=== PATIENT | male | born 1995 | race Caucasian/White ===

== ENCOUNTER 2016-03-18 06:30 | Emergency (ER) | payer MEDICAID ==
[~2016-03-18] VITALS: Ht 175.3 cm; Wt 68.0 kg
[~2016-03-18 06:30] MED LIST: ALBU18HF2 INH; PRED20TA PO
[2016-03-18] MEDS ORDERED: HYDROMORPHONE INJ 2 MG/ML DISP.SYRIN IV ONE (07:00)
[2016-03-18] MEDS ORDERED: ONDANSETRON HCL/PF 4 MG/2 ML VIAL IVP ONE (07:00)
[2016-03-18] MEDS ORDERED: IV NS 0.9% 500 ML BAG IV ONE (07:00)
[2016-03-18] MEDS ORDERED: HYDROMORPHONE 1 MG/1 ML DISP.SYRIN ONE (07:03)
[2016-03-18] MEDS ORDERED: IV SET PRIMARY PUMP SET 1 EA INFUS.SET MC ONE (07:03)
[2016-03-18] MEDS ORDERED: ONDANSETRON HCL/PF 4 MG/2 ML VIAL ONE (07:03)
[2016-03-18 07:20] LABS: CALCIUM, SERUM 9.1 mg/dL (8.5-10.1); CREATININE 0.9 mg/dL (0.6-1.3); POTASSIUM 3.8 mmol/L (3.5-5.1)
[2016-03-18 07:25] LABS: BASOPHILS # (AUTO) 0.1 /CMM (0.0-0.2); BASOPHILS % (AUTO) 0.8 % (0.0-2.0); DIFF TOTAL % 100 %; EOSINOPHILS # (AUTO) 0.8 /CMM (0.0-0.7); EOSINOPHILS % (AUTO) 9.6 % (0.0-6.0); HEMATOCRIT 47 % (39-51); HEMOGLOBIN 15.9 g/dL (13.5-17.5); LYMPHOCYTES # (AUTO) 2.3 /CMM (0.8-4.8); MEAN CORPUSCULAR HEMOGLOBIN 30 PG (26.0-33.0); MEAN CORPUSCULAR HGB CONC 34 g/dl (31.0-36.0); MEAN CORPUSCULAR VOLUME 88 fL (80-96); MONOCYTES # (AUTO) 0.7 /CMM (0.1-1.30); MONOCYTES % (AUTO) 8.6 % (2.0-12.0); NEUTROPHILS # (AUTO) 4.3 /CMM (1.8-8.9); PLATELET COUNT (AUTO) 299 /CMM (150-450); WHITE BLOOD COUNT (AUTO) 8.1 K/uL (4.3-11.0)
[2016-03-18 07:27] LABS: BILIRUBIN,DIRECT 0.1 mg/dL (0.0-0.2); BILIRUBIN,TOTAL 0.4 mg/dL (0.2-1.0); INDIRECT BILIRUBIN 0.3 mg/dL (0.0-1.1); TOTAL PROTEIN, SERUM 7.7 g/dL (6.4-8.2)
[2016-03-18 07:31] LABS: ADD UA MICROSCOPIC NO; KETONES,URINE NEGATIVE (NEGATIVE); LEUKOCYTE ESTERASE ,URINE NEGATIVE (NEGATIVE); PH,URINE 6.5 (5.0-8.0)
[2016-03-18] MEDS ORDERED: ALBUTEROL FS 2.5 MG/3 ML VIAL.NEB ONE (07:50)
[2016-03-18] MEDS ORDERED: IPRATROPIUM NEB FS 0.5 MG/2.5 ML AMPUL.NEB ONE (07:50)
[2016-03-18 08:50] VITALS: BP 143/87
== END 2016-03-18 08:51 | disposition home or self-care (01) ==
LOC: ER 06:30
DX: K81.9 Cholecystitis, unspecified (principal); J45.909 Unspecified asthma, uncomplicated; Z88.5 Allergy status to narcotic agent; Z88.8 Allergy status to other drugs, medicaments and biological substances
CPT/HCPCS: 36415; 76700; 80048; 80076; 81001; 83690; 85025; 96374; 96375; 99285; A4606; J1170; J2405; Z7610; 81000-TC

== ENCOUNTER 2016-04-30 03:13 | Emergency (ER) | payer OTHER ==
[~2016-04-30] VITALS: Ht 172.7 cm; Wt 68.9 kg
[2016-04-30] MEDS ORDERED: ONDANSETRON HCL/PF 4 MG/2 ML VIAL ONE (03:49)
[2016-04-30 03:57] LABS: BASOPHILS # (AUTO) 0.1 /CMM (0.0-0.2); BASOPHILS % (AUTO) 0.7 % (0.0-2.0); DIFF TOTAL % 100 %; HEMATOCRIT 45 % (39-51); HEMOGLOBIN 15.4 g/dL (13.5-17.5); LYMPHOCYTES # (AUTO) 2.8 /CMM (0.8-4.8); LYMPHOCYTES % (AUTO) 29.3 % (20.0-44.0); MEAN CORPUSCULAR HEMOGLOBIN 30 PG (26.0-33.0); MEAN CORPUSCULAR HGB CONC 34 g/dl (31.0-36.0); MEAN CORPUSCULAR VOLUME 87 fL (80-96); MONOCYTES # (AUTO) 0.8 /CMM (0.1-1.30); MONOCYTES % (AUTO) 8.6 % (2.0-12.0); NEUTROPHILS % (AUTO) 51.4 % (43.0-81.0); PLATELET COUNT (AUTO) 293 /CMM (150-450); WHITE BLOOD COUNT (AUTO) 9.7 K/uL (4.3-11.0)
[2016-04-30] MEDS ORDERED: methylPREDNISolone SOD SUCC 125 MG/2ML VIAL ONE (03:57)
[2016-04-30 03:58] LABS: ADD UA MICROSCOPIC NO; KETONES,URINE NEGATIVE (NEGATIVE); LEUKOCYTE ESTERASE ,URINE NEGATIVE (NEGATIVE); PH,URINE 6.5 (5.0-8.0)
[2016-04-30] MEDS ORDERED: FAMOTIDINE/PF INJ 20 MG/2 ML VIAL IV ONE ×2 (03:58→04:00)
[2016-04-30] MEDS ORDERED: MORPHINE SULFATE INJ 2 MG/ML DISP.SYRIN IV ONE (04:00)
[2016-04-30] MEDS ORDERED: ONDANSETRON HCL/PF 4 MG/2 ML VIAL IVP ONE (04:00)
[2016-04-30] MEDS ORDERED: methylPREDNISolone SOD SUCC 125 MG/2ML VIAL IV ONE (04:00)
[2016-04-30 04:14] LABS: BILIRUBIN,TOTAL 0.4 mg/dL (0.2-1.0); CALCIUM, SERUM 8.3 mg/dL (8.5-10.1); POTASSIUM 3.8 mmol/L (3.5-5.1); TOTAL PROTEIN, SERUM 7.5 g/dL (6.4-8.2)
[2016-04-30 04:45] LABS: INDIRECT BILIRUBIN 0.4 mg/dL (0.0-1.1)
[2016-04-30 05:16] VITALS: BP 124/67
== END 2016-04-30 05:17 | disposition home or self-care (01) ==
LOC: ER 03:13
DX: K80.20 Calculus of gallbladder without cholecystitis without obstruction (principal); J45.909 Unspecified asthma, uncomplicated; Z88.6 Allergy status to analgesic agent; Z88.8 Allergy status to other drugs, medicaments and biological substances
CPT/HCPCS: 36415; 76705; 80048; 80076; 81001; 83690; 85025; 96374; 96375; 99285; A4606; J2405; J2930; J3490; Z7610; 81000-TC

== ENCOUNTER 2016-06-10 18:59 | Emergency (ER) | payer MEDICAID, OTHER ==
[~2016-06-10] VITALS: Ht 172.7 cm; Wt 68.0 kg
[2016-06-10 19:17] VITALS: BP 126/81
[2016-06-10] MEDS ORDERED: ALBUTEROL FS 2.5 MG/3 ML VIAL.NEB ONE (19:38)
[2016-06-10] MEDS ORDERED: IPRATROPIUM NEB FS 0.5 MG/2.5 ML AMPUL.NEB ONE (19:38)
[2016-06-10] MEDS ORDERED: ALBUTEROL FS 2.5 MG/3 ML VIAL.NEB NEB ONE (20:00)
[2016-06-10] MEDS ORDERED: predniSONE 20 MG TABLET PO ONE (20:00)
[2016-06-10] MEDS ORDERED: IPRATROPIUM NEB FS 0.5 MG/2.5 ML AMPUL.NEB NEB ONE (20:00)
[2016-06-10] MEDS ORDERED: predniSONE 20 MG TABLET ONE (20:04)
== END 2016-06-10 20:21 | disposition home or self-care (01) ==
LOC: ER 19:01
DX: J45.901 Unspecified asthma with (acute) exacerbation (principal); K21.0 Gastro-esophageal reflux disease with esophagitis; K80.20 Calculus of gallbladder without cholecystitis without obstruction; Z88.6 Allergy status to analgesic agent; Z88.8 Allergy status to other drugs, medicaments and biological substances
CPT/HCPCS: 94640 ×2; 99284; A4606; J7512; Z7610

== ENCOUNTER 2016-07-22 23:34 | Emergency (ER) | payer MEDICAID, OTHER ==
[~2016-07-22] VITALS: Ht 172.7 cm; Wt 68.0 kg
[2016-07-22 23:49] VITALS: BP 104/77
[2016-07-23] MEDS ORDERED: MAG HYDROX/AL HYDROX/SIMETH 30 ML UDC ONE (00:23)
[2016-07-23] MEDS ORDERED: MAG HYDROX/AL HYDROX/SIMETH 30 ML UDC PO ONE (00:30)
== END 2016-07-23 00:30 | disposition home or self-care (01) ==
LOC: ER 23:34
DX: K21.9 Gastro-esophageal reflux disease without esophagitis (principal); J45.909 Unspecified asthma, uncomplicated; Z87.442 Personal history of urinary calculi; Z88.6 Allergy status to analgesic agent; Z88.8 Allergy status to other drugs, medicaments and biological substances
CPT/HCPCS: 99283; A4606; Z7610

== ENCOUNTER 2017-02-09 | Emergency (ER) | payer OTHER ==
[~2017-02-09] VITALS: Ht 172.7 cm; Wt 63.5 kg
[2017-02-09 00:04] VITALS: BP 123/77
== END 2017-02-09 00:22 | disposition home or self-care (01) ==
LOC: ER 00:05
DX: Z76.0 Encounter for issue of repeat prescription (principal); J06.9 Acute upper respiratory infection, unspecified; J45.909 Unspecified asthma, uncomplicated; K21.9 Gastro-esophageal reflux disease without esophagitis; Z88.6 Allergy status to analgesic agent; Z88.8 Allergy status to other drugs, medicaments and biological substances; Z79.899 Other long term (current) drug therapy
CPT/HCPCS: 99283; A4606; Z7610

== ENCOUNTER 2017-03-31 04:42 | Emergency (ER) | payer SELFPAY ==
[~2017-03-31] VITALS: Ht 172.7 cm; Wt 65.8 kg
[2017-03-31 04:57] VITALS: BP 112/70
== END 2017-03-31 05:38 | disposition home or self-care (01) ==
LOC: ER 04:42
DX: K80.50 Calculus of bile duct without cholangitis or cholecystitis without obstruction (principal); J45.909 Unspecified asthma, uncomplicated; K21.9 Gastro-esophageal reflux disease without esophagitis; Z88.6 Allergy status to analgesic agent; Z88.8 Allergy status to other drugs, medicaments and biological substances
CPT/HCPCS: A4606; Z7610

== ENCOUNTER 2017-10-25 04:31 | Emergency (ER) | payer MEDICAID ==
[~2017-10-25] VITALS: Ht 172.7 cm; Wt 63.5 kg
[2017-10-25 04:42] VITALS: BP 114/67
== END 2017-10-25 05:17 | disposition home or self-care (01) ==
LOC: ER 04:33
DX: I88.9 Nonspecific lymphadenitis, unspecified (principal); J45.909 Unspecified asthma, uncomplicated; Z90.49 Acquired absence of other specified parts of digestive tract; Z88.6 Allergy status to analgesic agent; Z88.8 Allergy status to other drugs, medicaments and biological substances
CPT/HCPCS: A4606; Z7610

== ENCOUNTER 2018-06-14 13:42 | Emergency (ER) | payer MEDICAID ==
[~2018-06-14] VITALS: Ht 172.7 cm; Wt 67.6 kg
[2018-06-14 13:47] VITALS: BP 113/68
--- NOTE | 2018-06-14 13:59 | NUR ---
Patient discharged to home in stable condition. Written and verbal after care instructions given. Patient verbalizes understanding of instruction.
== END 2018-06-14 14:00 | disposition home or self-care (01) ==
LOC: ER 13:45
DX: Z76.0 Encounter for issue of repeat prescription (principal); J45.909 Unspecified asthma, uncomplicated; K21.9 Gastro-esophageal reflux disease without esophagitis; Z90.49 Acquired absence of other specified parts of digestive tract; Z88.6 Allergy status to analgesic agent; Z88.8 Allergy status to other drugs, medicaments and biological substances; Z88.3 Allergy status to other anti-infective agents

== ENCOUNTER 2019-10-04 14:38 | Emergency (ER) | payer MEDICAID ==
[~2019-10-04] VITALS: Ht 172.7 cm; Wt 68.0 kg
[2019-10-04 14:45] VITALS: BP 143/79
--- NOTE | 2019-10-04 15:27 | NUR ---
Patient discharged to home in stable condition. Written and verbal after care instructions given. Patient verbalizes understanding of instruction.
== END 2019-10-04 15:27 | disposition home or self-care (01) ==
LOC: ER 14:41
DX: Z76.0 Encounter for issue of repeat prescription (principal); J45.909 Unspecified asthma, uncomplicated; K21.9 Gastro-esophageal reflux disease without esophagitis; Z90.49 Acquired absence of other specified parts of digestive tract; Z88.6 Allergy status to analgesic agent; Z88.8 Allergy status to other drugs, medicaments and biological substances; Z91.048 Other nonmedicinal substance allergy status; Z79.899 Other long term (current) drug therapy

== ENCOUNTER 2020-04-19 09:54 | Emergency (ER) | payer SELFPAY ==
[~2020-04-19] VITALS: Ht 172.7 cm; Wt 72.6 kg
[2020-04-19 10:10] VITALS: BP 137/79
--- NOTE | 2020-04-19 10:35 | NUR ---
DR. BRITO AT BEDSIDE FOR EVAL.
[2020-04-19] MEDS ORDERED: DEXAMETHASONE 4 MG TABLET ONE (10:55)
[2020-04-19] MEDS ORDERED: DEXAMETHASONE 1 MG TABLET PO ONE (11:00)
--- NOTE | 2020-04-19 11:10 | NUR ---
PATIENT REFUSED DECADRON, REQUESTED FOR PREDNISONE INSTEAD, DR. BRITO MADE AWARE AND GAVE A VERBAL ORDER OF PREDNISONE 50MG.
[2020-04-19] MEDS ORDERED: predniSONE 10 MG TABLET ONE (11:11)
[2020-04-19] MEDS ORDERED: predniSONE 50 MG TABLET PO ONE (11:30)
--- NOTE | 2020-04-19 11:40 | NUR ---
PATIENT RESTING, VSS. BP 116/67 HR 114 SPO2 97% ON ROOM AIR. DENIES SOB.
--- NOTE | 2020-04-19 12:25 | NUR ---
Patient discharged to home in stable condition. Written and verbal after care instructions given. Patient verbalizes understanding of instruction. Patient left without signing paperworks, in a hurry.
== END 2020-04-19 12:25 | disposition home or self-care (01) ==
LOC: ER 10:02
DX: T78.1XXA Other adverse food reactions, not elsewhere classified, initial encounter (principal); J45.909 Unspecified asthma, uncomplicated; K21.9 Gastro-esophageal reflux disease without esophagitis; Z90.49 Acquired absence of other specified parts of digestive tract; Z88.6 Allergy status to analgesic agent; Z88.8 Allergy status to other drugs, medicaments and biological substances; Z79.899 Other long term (current) drug therapy; X58.XXXA Exposure to other specified factors, initial encounter
CPT/HCPCS: 99283; J7512; J8540

== ENCOUNTER 2020-08-22 09:35 | Emergency (ER) | payer SELFPAY ==
[~2020-08-22] VITALS: Ht 172.7 cm; Wt 68.0 kg
[2020-08-22 09:50] VITALS: BP 129/70
--- NOTE | 2020-08-22 09:53 | NUR ---
The patient c/o sorethroat x 2 days 5/10 pain scale. In room air and denies SOB. Respiration regular and unlabored. Will continue to monitor the patient.
[2020-08-22] MEDS ORDERED: ALBU18HF2 INH (10:00)
[2020-08-22] MEDS ORDERED: DEXAMETHASONE 4 MG TABLET ONE (10:04)
[2020-08-22] MEDS: DEXAMETHASONE 1 MG TABLET PO ONE ×2 (10:04→10:14)
--- NOTE | 2020-08-22 10:14 | NUR ---
The patient refused ordered decadrone despite explaining risks and benefits. Dr Oneal made aware3
--- NOTE | 2020-08-22 10:15 | NUR ---
Patient discharged to home in stable condition. Written and verbal after care instructions given. Patient verbalizes understanding of instruction.
== END 2020-08-22 10:16 | disposition home or self-care (01) ==
LOC: ER 09:54
DX: J02.9 Acute pharyngitis, unspecified (principal); J45.909 Unspecified asthma, uncomplicated; K21.9 Gastro-esophageal reflux disease without esophagitis; Z90.49 Acquired absence of other specified parts of digestive tract; Z88.6 Allergy status to analgesic agent; Z88.8 Allergy status to other drugs, medicaments and biological substances; Z79.899 Other long term (current) drug therapy
CPT/HCPCS: 99283; J8540

== ENCOUNTER 2020-09-09 22:22 | Emergency (ER) | payer SELFPAY ==
[~2020-09-09] VITALS: Ht 172.7 cm; Wt 77.1 kg
[2020-09-09 22:28] VITALS: BP 115/79
[2020-09-09] MEDS ORDERED: IPRATROPIUM NEB FS 0.5 MG/2.5 ML AMPUL.NEB ONE (22:45)
[2020-09-09] MEDS ORDERED: ALBUTEROL FS 2.5 MG/0.5 ML VIAL.NEB ONE (22:45)
[2020-09-09] MEDS ORDERED: PRED50TA PO (22:46)
--- NOTE | 2020-09-09 22:48 | NUR ---
RT at bedside for Breathing treatment.
[2020-09-09] MEDS ORDERED: ALBUTEROL FS 2.5 MG/0.5 ML VIAL.NEB NEB ONE (23:00)
[2020-09-09] MEDS ORDERED: IPRATROPIUM NEB FS 0.5 MG/2.5 ML AMPUL.NEB NEB ONE (23:00)
[2020-09-09] MEDS ORDERED: predniSONE 50 MG TABLET PO ONE (23:00)
[2020-09-09] MEDS ORDERED: predniSONE 20 MG TABLET ONE (23:04)
--- NOTE | 2020-09-09 23:33 | NUR ---
Patient discharged to home in stable condition. Written and verbal after care instructions given. Patient verbalizes understanding of instruction.
== END 2020-09-09 23:33 | disposition home or self-care (01) ==
LOC: ER 22:22
DX: J45.901 Unspecified asthma with (acute) exacerbation (principal); Z88.6 Allergy status to analgesic agent; Z88.8 Allergy status to other drugs, medicaments and biological substances; Z79.899 Other long term (current) drug therapy
CPT/HCPCS: 94640; 99283; J7512

== ENCOUNTER 2020-09-14 20:17 | Emergency (ER) | payer MEDICAID ==
[~2020-09-14] VITALS: Ht 172.7 cm; Wt 77.1 kg
[~2020-09-14 20:17] MED LIST changes: +PRED50TA PO
[2020-09-14] MEDS ORDERED: ALBUTEROL FS 2.5 MG/3 ML VIAL.NEB ONE (20:48)
[2020-09-14] MEDS ORDERED: IPRATROPIUM NEB FS 0.5 MG/2.5 ML AMPUL.NEB ONE (20:48)
[2020-09-14] MEDS ORDERED: methylPREDNISolone SOD SUCC 125 MG/2ML VIAL ONE (20:56)
[2020-09-14] MEDS ORDERED: ALBUTEROL FS 2.5 MG/3 ML VIAL.NEB CONTNEB ONE (21:00)
[2020-09-14] MEDS ORDERED: methylPREDNISolone SOD SUCC 125 MG/2ML VIAL IV ONE (21:00)
[2020-09-14] MEDS ORDERED: ALBUTEROL FS 2.5 MG/3 ML VIAL.NEB NEB ONE (21:00)
[2020-09-14] MEDS ORDERED: IPRATROPIUM NEB FS 0.5 MG/2.5 ML AMPUL.NEB NEB ONE ×2 (21:00)
--- NOTE | 2020-09-14 21:00 | NUR ---
PATIENT BIBSELF C/O SOB X 4 DAYS. HX OF ASTHMA, "INHALER NOT HELPING" SAT 98% RA. PATIENT IS A/O X 4, RR EVEN AND UNLABORED, NO SIGNS OF SOB NOTED, PATIENT VSS, CONNECTED TO MONITOR.
[2020-09-14] MEDS ORDERED: AZITHROMYCIN 250 MG TABLET ONE (21:48)
[2020-09-14] MEDS ORDERED: AZITHROMYCIN 250 MG TABLET PO ONE (22:00)
[2020-09-14] MEDS ORDERED: PRED20TA PO (22:25)
[2020-09-14] MEDS ORDERED: AZIT250T13 PO (22:25)
[2020-09-14] MEDS ORDERED: ALBU18HF2 INH (22:25)
[2020-09-14 23:32] VITALS: BP 118/58
--- NOTE | 2020-09-14 23:32 | NUR ---
Patient discharged to home in stable condition. Written and verbal after care instructions given. Patient verbalizes understanding of instruction.
== END 2020-09-14 23:33 | disposition home or self-care (01) ==
LOC: ER 20:18
DX: U07.1 COVID-19 (principal); J12.82 Pneumonia due to coronavirus disease 2019; J45.901 Unspecified asthma with (acute) exacerbation; Z83.3 Family history of diabetes mellitus; Z88.6 Allergy status to analgesic agent; Z88.8 Allergy status to other drugs, medicaments and biological substances
CPT/HCPCS: 71045; 87426; 94640; 96374; 99285; C9803 ×2; J2930; U0003

== ENCOUNTER 2021-02-06 04:39 | Emergency (ER) | payer MEDICAID ==
[~2021-02-06 04:39] MED LIST changes: +AZIT250T13 PO
--- NOTE | 2021-02-06 05:03 | NUR ---
called for triage not in waiting room.
--- NOTE | 2021-02-06 05:23 | NUR ---
called for triage not in waiting room.
--- NOTE | 2021-02-06 06:02 | NUR ---
patient left without being seen.
== END 2021-02-06 06:03 | disposition left against medical advice (07) ==
LOC: ER 04:48
DX: Z53.21 Procedure and treatment not carried out due to patient leaving prior to being seen by health care provider (principal)

== ENCOUNTER 2022-07-03 14:48 | Emergency (ER) | payer MEDICAID ==
[~2022-07-03] VITALS: Ht 172.7 cm; Wt 77.1 kg
--- NOTE | 2022-07-03 14:55 | NUR ---
Patient AOx4 able to express his concerns. Patient states he has a hx. of asthma and has been having trouble breathing. O2 (9% on Room Air, no signs of distress or discomfort. Discussed plan of care, patient verbalized agreement. All safety precautions followed.
[2022-07-03] MEDS ORDERED: predniSONE 20 MG TABLET ONE (15:01)
[2022-07-03] MEDS ORDERED: PRED20TA PO (15:03)
[2022-07-03] MEDS: predniSONE 20 MG TABLET PO ONE (15:03)
[2022-07-03] MEDS ORDERED: ALBU18HF2 INH (15:10)
--- NOTE | 2022-07-03 15:23 | NUR ---
Discussed plano of care, patient agrees with discharge.
[2022-07-03 15:24] VITALS: BP 128/76
== END 2022-07-03 15:25 | disposition home or self-care (01) ==
LOC: ER 14:57
DX: J45.909 Unspecified asthma, uncomplicated (principal); Z79.899 Other long term (current) drug therapy; Z88.1 Allergy status to other antibiotic agents
CPT/HCPCS: 99283; J7512